=== PATIENT | male | born 1950 | race Hispanic/Latino ===

== ENCOUNTER → 2020-09-21 | Outpatient (CLI) | payer OTHER ==
[~2020-09-21] MED LIST: ASPIRIN81 MG PO; ATORVASTATIN CA20 MG PO; CELEXA10 MG PO; LOSARTAN POTASS25 MG PO; METOPROLOL TAR100 MG PO; METOPROLOL TART25 MG PO; NITROGLYCERIN0.4 MG SL; PLAVIX75 MG PO
== END ==
LOC: RAD 13:19
PROVIDERS: ATTEND Internal Medicine
DX: R05 Cough (principal)
CPT/HCPCS: 71046

== ENCOUNTER → 2021-09-14 | Outpatient (CLI) | payer OTHER | LOC: RAD 14:42 | PROVIDERS: ATTEND Internal Medicine | DX: R06.02 Shortness of breath (principal) | CPT/HCPCS: 71046 ==

== ENCOUNTER → 2021-09-28 | Outpatient (CLI) | payer OTHER | LOC: CT 07:13 | PROVIDERS: ATTEND Internal Medicine | DX: J44.9 Chronic obstructive pulmonary disease, unspecified (principal) | CPT/HCPCS: 71250 ==